=== PATIENT | female | born 1980 | race Caucasian/White ===

== ENCOUNTER 2022-08-21 15:58 | Emergency (ER) | payer OTHER ==
[~2022-08-21] VITALS: Ht 165.1 cm; Wt 56.7 kg
[2022-08-21] MEDS ORDERED: LORAZEPAM0.5 M1 PO (16:19)
[2022-08-21] MEDS ORDERED: CYCLOBENZAPRINE10 MG PO (18:41)
[2022-08-21] MEDS ORDERED: NAPROSYN500 MG PO (18:41)
== END 2022-08-21 19:22 | disposition home or self-care (01) ==
LOC: ED 15:58
DX: R51.9 Headache, unspecified (principal); F41.9 Anxiety disorder, unspecified; V49.9XXA Car occupant (driver) (passenger) injured in unspecified traffic accident, initial encounter; Y93.89 Activity, other specified; Y92.410 Unspecified street and highway as the place of occurrence of the external cause; Y99.8 Other external cause status